=== PATIENT | male | born 1985 | race Hispanic/Latino ===

== ENCOUNTER 2020-05-12 00:31 | Emergency (ER) | payer SELFPAY ==
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
== END 2020-05-12 01:27 | disposition home or self-care (01) ==
LOC: ER 00:31
DX: Z04.3 Encounter for examination and observation following other accident (principal)
CPT/HCPCS: 99283